=== PATIENT | male | born 1960 | race Caucasian/White ===

== ENCOUNTER 2017-01-31 11:07 | Emergency (ER) | payer BC ==
--- NOTE | 2017-01-31 11:58 | UC ---
Respiratory Complaint HPI - HPI Summary HPI Summary: 56 yo male with f/c, productive cough and dyspnea x 4-5 days no n/v/d - History of Current Complaint Chief Complaint: UCRespiratory Stated Complaint: FLU SYMPTOMS Time Seen by Provider: 01/31/17 11:42 Hx Obtained From: Patient Onset/Duration: Gradual Onset, Lasting Days Timing: Constant Severity Initially: Mild Severity Currently: Moderate Pain Intensity: 4 Pain Scale Used: 0-10 Numeric Character: Cough: Productive Aggravating Factors: Exertion, Deep Breaths Alleviating Factors: Nothing Associated Signs And Symptoms: Positive: Dyspnea, Fever, Chills, Wheezing, Nasal Congestion - Allergies/Home Medications Allergies/Adverse Reactions: Allergies Allergy/AdvReac Type Severity Reaction Status Date / Time Nitrous Oxide Allergy Severe Hallucinati Verified 01/31/17 11:37 ons Propoxyphene [From Darvon] Allergy Severe Hallucinati Verified 01/31/17 11:37 ons Home Medications: Home Medications [id number] W/ APAP [Cold & Flu Severe [id number] mg] 2 tab PO PRN [History] PMH/Surg Hx/FS Hx/Imm Hx Previously Healthy: Yes Cardiovascular History Of: Reports: Cardiac Disorders - A fib, Hypertension, Atrial Fibrillation Denies: Pacemaker/ICD Respiratory History Of: Reports: COPD - Surgical History Surgical History: None - Family History Known Family History: Positive: Cardiac Disease, Hypertension, Diabetes - Social History Alcohol Use: Daily Alcohol Amount: beers Substance Use Type: None Smoking Status (MU): Former Smoker Type: Cigarettes Amount Used/How Often: 1 ppd Length of Time of Smoking/Using Tobacco: approx 40 yrs Have You Smoked in the Last Year: No When Did the Patient Quit Smoking/Using Tobacco: 2008 - Immunization History Most Recent Influenza Vaccination: no Most Recent Tetanus Shot: unk Most Recent Pneumonia Vaccination: unk Review of Systems Constitutional: Fever, Chills Skin: Negative Eyes: Negative ENT: Nasal Discharge Respiratory: Shortness Of Breath, Cough Cardiovascular: Negative Gastrointestinal: Negative Genitourinary: Negative Motor: Negative Neurovascular: Negative Musculoskeletal: Myalgia Neurological: Negative Psychological: Negative All Other Systems Reviewed And Are Negative: Yes Physical Exam Triage Information Reviewed: Yes Appearance: Well-Appearing, No Pain Distress, Well-Nourished Vital Signs: Initial Vital Signs Temp 97.5 F 01/31/17 11:22 Pulse 80 01/31/17 11:22 Resp 20 01/31/17 11:22 BP 100/61 01/31/17 11:22 Pulse Ox 96 01/31/17 11:22 Vital Signs Reviewed: Yes Eyes: Positive: Conjunctiva Clear ENT: Positive: Hearing grossly normal, Nasal congestion, Nasal drainage, TMs normal. Negative: Tonsillar swelling, Tonsillar exudate, Trismus, Muffled/ hoarse voice Neck: Positive: Supple, Nontender Respiratory: Positive: Accessory muscle use, Wheezing Cardiovascular: Negative: RRR Musculoskeletal: Positive: ROM Intact, No Edema Neurological: Positive: Alert Skin Exam: Normal UC Diagnostic Evaluation - Laboratory O2 Sat by Pulse Oximetry: 96 - normal/not hypoxic Re-Evaluation - Re-Evaluation First Eval Re-Evaluation Time: 13:27 Change: Improved Comment: minimal improvement. refuses transfer to ER Respiratory Course/Dx - Course Course Of Treatment: refuses IV fluids and antibiotics - Differential Dx/Diagnosis Provider Diagnoses: pneumonia Discharge - Discharge Plan Condition: Stable Disposition: HOME Prescriptions: Albuterol 2.5MG/3ML (0.083%)* [Ventolin 2.5 MG/3 ML NEB.CAN*] 2.5 mg INH QID PRN #1 neb.can PRN Reason: Wheezing Amoxicillin/Clavulanate TAB* [Augmentin TAB 875*] 875 mg PO BID #14 tab Prednisone [Deltasone] 40 mg PO DAILY #10 tab Patient Education Materials: Pneumonia (ED) Forms: *Work Release Referrals: Kyler Whitmore PA [Primary Care Provider] - 1 Day Additional Instructions: to ER for worsening symptoms the radiologist suggests repeat chest XR in 2-3 weeks to make sure the pneumonia has cleared recheck in 2-3 days if not feeling better use inhaler as directed
[2017-01-31] MEDS ORDERED: Albuterol 2.5 MG/3 ML NEB.SOL* (0.083%) INH ONE (12:09)
[2017-01-31] MEDS ORDERED: Amoxicillin/Clavulanate TAB* 875 MG PO ONE (12:09)
[2017-01-31] MEDS ORDERED: Ipratropium 0.5MG/2.5ML NEB* 0.5 MG/2.5 ML NEB.SOLN INH ONE (12:09)
[2017-01-31] MEDS ORDERED: predniSONE TAB* 20 MG PO ONE (12:09)
--- NOTE | 2017-01-31 12:14 | RAD ---
INDICATION: Fever, chills, productive cough. Chronic obstructive pulmonary disease. Former tobacco use. COMPARISON: December 14, 2015 TECHNIQUE: Dual energy PA and routine lateral views of the chest were obtained. REPORT: Elevated lung volumes and both diffuse mild prominence of the interstitial markings and patchy rarefaction of the mid to upper lung zone interstitial markings. Patchy alveolar consolidation at the basilar segments of the LEFT lower lobe without volume loss is concerning for pneumonia. Negative for pleural effusions or pneumothorax. The heart, pulmonary vasculature, and mediastinal contours are unremarkable. IMPRESSION: 1. Stigmata of chronic obstructive pulmonary disease. 2. LEFT lower lobe pneumonia. Radiographic follow-up after therapy warranted to assess for resolution.
[2017-01-31] MEDS ORDERED: Albuterol HFA INHALER* 8 gm MDI INH ONE (13:24)
[2017-01-31 13:28] VITALS: BP 122/75
== END 2017-01-31 13:47 | disposition home or self-care (01) ==
LOC: UCCORT 11:07
DX: J18.9 Pneumonia, unspecified organism (principal); I48.91 Unspecified atrial fibrillation; I10 Essential (primary) hypertension; J44.9 Chronic obstructive pulmonary disease, unspecified; Z87.891 Personal history of nicotine dependence
CPT/HCPCS: 71020; 99213; A9270-GY; G0463; J7512; J7644

== ENCOUNTER 2019-07-29 17:21 | Emergency (ER) | payer SELFPAY ==
[2019-07-29] MEDS ORDERED: Ibuprofen TAB* 600 MG PO ONE (17:50)
[2019-07-29] MEDS ORDERED: Cyclobenzaprine TAB* 10 MG PO ONE (17:50)
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
[2019-07-29 19:44] VITALS: BP 133/81
[2019-07-29] MEDS ORDERED: HYDROcodone/ACETAMIN 5-325 MG* 1 TAB PO ONE (20:53)
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
== END 2019-07-29 21:19 | disposition home or self-care (01) ==
LOC: UCCORT 17:21
DX: S16.1XXA Strain of muscle, fascia and tendon at neck level, initial encounter (principal); M54.5 Low back pain; G89.29 Other chronic pain; M25.511 Pain in right shoulder; M25.512 Pain in left shoulder; I48.91 Unspecified atrial fibrillation; I10 Essential (primary) hypertension; M48.8X2 Other specified spondylopathies, cervical region; M48.02 Spinal stenosis, cervical region; M47.894 Other spondylosis, thoracic region; J44.9 Chronic obstructive pulmonary disease, unspecified; Z88.8 Allergy status to other drugs, medicaments and biological substances; Z91.09 Other allergy status, other than to drugs and biological substances; Z88.5 Allergy status to narcotic agent; Z79.899 Other long term (current) drug therapy; Z87.891 Personal history of nicotine dependence; V64.5XXA Driver of heavy transport vehicle injured in collision with heavy transport vehicle or bus in traffic accident, initial encounter; Y92.9 Unspecified place or not applicable
CPT/HCPCS: 72070; 72100; 72125; 99213; A9270-GY; G0463